=== PATIENT | female | born 1945 | race American Indian/Alaskan Native ===

== ENCOUNTER 2017-01-22 08:20 | Day surgery (SDC) | payer MEDICARE ==
[~2017-01-22 08:20] MED LIST: ANCEF/STERILE WATER 2 GM/20 ML 2 GM/20 ML SYRINGE IV NR; NACL 0.9% 1000 ML 1,000 ML IV SCH; PEPCID PO NR
--- NOTE | 2017-01-22 09:17 | Anesthesia Day of Surgery ---
Anesthesia Day of Surgery - Day of Surgery Patient Examined: Yes Patient H&P Reviewed: Yes Patient is NPO: Yes Beta Blockers: Yes
--- NOTE | 2017-01-22 09:18 | Anesthesia Consultation ---
Anesthesia Consult and Med Hx Date of service: 01/22/17 - Airway Anesthetic Teeth Evaluation: Good ROM Head & Neck: Adequate Mental/Hyoid Distance: Adequate Mallampati Class: Class II Intubation Access Assessment: Probably Good - Pulmonary Exam CTA: Yes - Cardiac Exam Cardiac Exam: RRR - Pre-Operative Health Status ASA Pre-Surgery Classification: ASA3 Proposed Anesthetic Plan: General - Pulmonary Hx Smoking: Yes (STOPPED X 8 YRS- 1/2PPD X 30 YRS) Hx Sleep Apnea: No (FATMATA PRE SCREEN HIGH RISK) - Cardiovascular System Hx Hypertension: Yes (X 5 YRS) - Gastrointestinal Hx Gastroesophageal Reflux Disease: Yes - Other Systems Hx Cancer: No Hx Obesity: Yes (MORBID)
[2017-01-22] MEDS ORDERED: ZOFRAN IV PRN (10:00)
[2017-01-22] MEDS ORDERED: DIPRIVAN 10 MG/ML IV ONE (10:45)
[2017-01-22] MEDS ORDERED: DILAUDID ONE (10:46)
[2017-01-22] MEDS ORDERED: XYLOCAINE MPF 2% ONE (10:46)
[2017-01-22] MEDS ORDERED: ZOFRAN ONE (10:47)
[2017-01-22] MEDS ORDERED: DECADRON ONE (10:47)
[2017-01-22] MEDS ORDERED: WATER FOR IRRIG STERILE IR ONE (11:15)
[2017-01-22] MEDS ORDERED: NACL 0.9% 1000 ML 1,000 ML ONE (11:26)
[2017-01-22] MEDS ORDERED: ePHEDrine SULFATE ONE (11:27)
--- NOTE | 2017-01-22 11:29 | Discharge Summary ---
Short Stay Discharge Plan Activity: other (no straining) Weight Bearing Status: Full Weight Bearing Diet: low fat, low cholesterol, low salt Special Instructions: other (increase fluids) Follow up with: HANNAH CORTEZ MD [Primary Care Provider] - 7 Days CRYSTAL CHANG MD [Staff Physician] - 6 Weeks
--- NOTE | 2017-01-22 11:31 | Fluoroscopy Report ---
RETROGRADE PYELOGRAM: History: Hydronephrosis. There is adequate filling of the ureters and intrarenal collecting systems with no filling defects or anatomic abnormalities identified. 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 Impression: Unremarkable exam. No filling defect or abnormal dilatation detected.
--- NOTE | 2017-01-22 11:32 | Post Operative Note ---
Date of procedure: 01/22/17 Pre-op diagnosis: ? Hydronephrosis Post-op diagnosis: same Findings: Left renal cyst cystocele filling defects Procedure: Procedure Operative note Preoperative diagnosis possible hydronephrosis Postoperative diagnosis normal variant Procedure cystoscopy retrograde pyelography Surgeon Dr. German Anesthesia Gen. Findings Patient heavy smoker possible left hydronephrosis Procedure Patient was brought to the operating room placed on the operating table Following the induction of general anesthesia placed in lithotomy position prepped and draped in usual sterile fashion. Cystoscopy showed some inflammatory changes in the urethra and the trigone. 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 At this point retrogrades were done. There were no persistent filling defects. We had the's read by Dr. Chavez as well and there were no filling defects. There was prominent upper pole infundibulum on both sides. Clear reflux from each orifice as well entire procedure well no biopsies were required there were no lesions was nothing bleeding were to recovery room in stable condition family notified Anesthesia: SPIKEA Surgeon: CRYSTAL CHANG Estimated blood loss: none Pathology: none Condition: stable Disposition: PACU
[2017-01-22] MEDS: DILAUDID IV PRN ×2 (11:40→11:55)
--- NOTE | 2017-01-22 12:21 | Post Anesthesia Evaluation ---
- Post Anesthesia Evaluation Patient Participated: Yes Airway Patent: Yes Stable Respiratory Function: Yes Nausea/Vomiting: No Temp > 96.8F: Yes Pain Manageable: Yes Adequeate Hydration: Yes Anesthesia Complications: No Block Receding Appropriately: Not Applicable Patient on Ventilator: No
[2017-01-22 14:00] VITALS: BP 156/81
== END 2017-01-22 14:17 | disposition home or self-care (01) ==
LOC: OR 08:20
PROVIDERS: ATTEND Urology
DX: N28.1 Cyst of kidney, acquired (principal); N81.10 Cystocele, unspecified; N32.89 Other specified disorders of bladder; I10 Essential (primary) hypertension; K21.9 Gastro-esophageal reflux disease without esophagitis; E66.01 Morbid (severe) obesity due to excess calories; Z68.41 Body mass index [BMI] 40.0-44.9, adult; Z87.891 Personal history of nicotine dependence; Z88.2 Allergy status to sulfonamides; Z90.710 Acquired absence of both cervix and uterus; Z98.890 Other specified postprocedural states; Z79.899 Other long term (current) drug therapy; Z84.2 Family history of other diseases of the genitourinary system; Z82.49 Family history of ischemic heart disease and other diseases of the circulatory system; Z83.3 Family history of diabetes mellitus
CPT/HCPCS: 36415; 52005; 74420; 84132; A4217; C1758; J0690; J1100; J1170; J2405; J2704; J7030; Q9967